=== PATIENT | male | born 1945 | race Caucasian/White ===

== ENCOUNTER → 2018-01-31 08:38 | Outpatient (CLI) | payer MEDICARE, OTHER, SELFPAY ==
--- NOTE | 2018-01-31 07:30 | LES_PTH ---
PATIENT: MIA MOONEY LOC: [facility] U#:[id number] AGE/SX: 79/M ROOM: RE01/31/[address]: Dr. Hank Miller MD : 1945 BED: DIS: SPEC #: [id number] RECD: 01/31/18 08:36 STATUS: BG GONZALO #: [id number] KANDY: 01/31/18 07:[address]: Hank Miller DEPT: SURGICAL PATHOLOGY RECD BY: Mitchell Gaudencio ENTERED: 01/31/18 12:34 SP TYPE: Lesion OTHR DR: Dr. Bobby Vasquez MD Tissues: Skin of forearm, NOS Procedures: Surgery Specimen Level IV HEADER OPERATION: Excision right forearm skin lesion PRE-OP DIAGNOSIS: Neoplasm of uncertain behavior of skin of forearm 048.5 TISSUE SUBMITTED: Skin lesion right forearm MICROSCOPIC DIAGNOSIS Skin lesion right forearm, biopsy: Consistent with benign verrucous keratosis. Negative for malignancy. SJ:monique 02/03/18 COMMENT Case has been reviewed in consultation with Dr. Nelson who concurs with the above diagnosis. IDC:AM MICROSCOPIC DESCRIPTION Slides are reviewed. GROSS DESCRIPTION Received in fixative is one container labeled with the patient's name and designated skin lesion right forearm. The specimen consists of a piece of lee-white skin ellipse measuring 1.4 x 0.5 cm and up to 0.2 cm in thickness. The specimen is inked and submitted entirely in one cassette. It will be sectioned at the time of embedding. / JOSEP:monique 01/31/18 TC:5 CPT: 48694
== END ==
PROVIDERS: Family Provider Internal Medicine; PCP Internal Medicine; Visit Provider Surgery
DX: D48.5 Neoplasm of uncertain behavior of skin (principal)
CPT/HCPCS: 88305

== ENCOUNTER 2020-01-10 12:07 | Emergency (ER) | payer MEDICARE, OTHER, SELFPAY ==
[2020-01-10 12:07] VITALS: BP 126/69; PULSE 80; RESP 16; TEMP 36.3; O2SAT 96; BMI 25.0
--- NOTE | 2020-01-10 12:37 | CT_ITS ---
STUDY: CT ABDOMEN AND PELVIS WITH CONTRAST REASON FOR EXAM: Male, 74 years old. Abdominal pain, history of diverticulosis RADIATION DOSAGE (If Supplied By Facility): CTDIvol = ( 14.51 ) mGy, DLP = ( 1045.29 ) mGycm TECHNIQUE: CT images were obtained from the dome of the diaphragm to the symphysis pubis without oral contrast. IV 100mL Isovue-370 was administered. Sagittal and coronal images were reconstructed. Individualized dose optimization techniques were used for this CT. COMPARISON: None. FINDINGS: Lung bases are clear. Inferior mediastinal structures are normal. There is no intestinal obstruction. There is colonic diverticulosis without diverticulitis. However, there are chronic extensive diverticular changes in the sigmoid which can mask the presence of mild focal diverticulitis. There is appendectomy. Solid organs are intact. There is a benign left renal cyst which does not require any further diagnostic imaging. Osseous structures are intact with a lucent lesion in the right L2 vertebral body posterolaterally, probably hemangioma. There is prior left inguinal hernia repair without recurrence. CT/Abdomen/Pelvis W IV Cont ONLY IMPRESSION: 1. No acute findings. 2. Extensive sigmoid diverticulosis. Electronically Signed: Michelle Baca, at 14:20 EDT Tel , Service support ,
--- NOTE | 2020-01-10 12:38 | ED.DCSUM_ITS ---
History of Present Illness Chief Complaint: Abd Pain Informant: Patient Narrative: 74-year-old male with past medical history of atrial fibrillation, stroke, hypertension presents with concern for abdominal pain. States it began this morning. States he has become distended. Is aching in nature. No relieving or worsening factors. Nausea without vomiting. Had one episode of diarrhea yesterday which resolved with Imodium. Denies any fever, chills, chest pain, cough, shortness of breath. Denies any urinary symptoms. Past Medical History - Allergies and Home Meds Allergies/Adverse Reactions: Allergies Sulfa (Sulfonamide Antibiotics) Allergy (Verified 01/10/20 12:10) Rash scallops Adverse Reaction (Verified 01/10/20 12:10) Vomiting Primary Care Physician: Bobby Vasquez MD [Primary Care Provider] - Past Medical History: - - Hypertension, stroke, atrial fibrillation Surgical History: - - Ablation Smoking Status: Never smoker Alcohol: None Drugs: None - Family History Maternal Family History: Reports: No pertinent history Paternal Family History: Reports: Cancer - Lung CA w/ history of tobacco use. Review of Systems General: Denies: Chills, Fever, Sweats Eyes: Denies: Visual changes - bilaterally, Diplopia ENT: Denies: Rhinorrhea, Sore throat Cardiovascular: Denies: Chest pain, Palpitations Respiratory: Denies: Dyspnea, Cough, Dyspnea on exertion Gastrointestinal: Reports: Abdominal pain, Nausea. Denies: Vomiting, Diarrhea, Melena, Hematochezia Genitourinary: Denies: Dysuria, Hematuria, Frequency Musculoskeletal: Denies: Back pain, Extremity Pain Skin: Denies: Rash, Wounds Neurological: Denies: Headache, Weakness, Numbness Physical Exam Vital Signs/Narrative: Vital Signs Temp Pulse Resp BP Pulse Ox 01/10/20 12:07 97.4 F L 80 16 126/69 H 96 Inital Vital Signs reviewed: Yes General: Well nourished, Well developed, No Acute Distress Head: Normocephalic, Atraumatic Eyes: Perrl, EOMI ENT: Moist mucous membranes, No rhinorrhea Neck: Supple, Nontender Cardiovascular: Regular rate, Regular rhythm, No murmurs Respiratory: No distress, CTA bilaterally, Chest nontender Abdomen: Soft, Nondistended, Normal bowel sounds, - - Slight tenderness to palpation in the left lower quadrant. No rebound or guarding. Reducible umbilical hernia. Back: Nontender, Normal Inspection Extremities: Nontender, No edema Skin: Normal color, No rash Neurological: Alert, Oriented x3, Cranial nerves II-XII grossly intact, Normal Strength, Normal Sensation Psychological: Normal affect, Normal Mood Diagnostic/Tx/Re-eval Clinical Impression(s) from Imaging Studies Abdomen/Pelvis CT 01/10/20 12:37 IMPRESSION: 1. No acute findings. 2. Extensive sigmoid diverticulosis. Electronically Signed: Michelle Baca, at 14:20 EDT Tel , Service support , Laboratory Data 01/10/20 01/10/20 01/10/20 13:00 13:00 13:36 WBC 9.5 RBC 5.38 Hgb 17.3 H Hct 51.9 MCV 96.5 H MCH 32.2 H MCHC 33.3 RDW Std Deviation 44.5 H RDW Coeff of Fernandez 12.6 Plt Count 126 L MPV 11.1 Immature Gran % (Auto) 0.500 Neut % (Auto) 82.8 H Lymph % (Auto) 10.8 L [place] % (Auto) 5.1 Eos % (Auto) 0.6 Baso % (Auto) 0.2 Absolute Neuts (auto) 7.9 H Absolute Lymphs (auto) 1.03 Nucleated RBC % 0 Sodium 140 Potassium 4.2 Chloride 108 H Carbon Dioxide 26.0 Anion Gap 6 BUN 15 Creatinine 0.98 Estim Creat Clear Calc 74.56 Est GFR (MDRD) Af Amer 95 Est GFR (MDRD) Non-Af 79 BUN/Creatinine Ratio 15.3 Glucose 128 H Calcium 8.8 Total Bilirubin 0.40 AST 12 L ALT 20 Alkaline Phosphatase 69 Total Protein 6.4 Albumin 3.8 Globulin 2.6 Albumin/Globulin Ratio 1.5 Lipase 60 L Urine Color Yellow Urine Clarity Clear Urine pH 5.0 Ur Specific [place] 1.020 Urine Protein Negative Urine Glucose (UA) Normal Urine Ketones 5 H Urine Occult Blood Negative Urine Nitrite Negative Urine Bilirubin Negative Urine Urobilinogen Normal Ur Leukocyte Esterase Negative Urine RBC 0 SEEN Urine WBC 0 SEEN Ur Squamous Epith Cells 0 SEEN Urine Bacteria RARE Urine Mucus 0 SEEN - Medical Decision Making Appears well nontoxic. Vital signs within normal limits. Benign abdominal exam. Reducible umbilical hernia. CT abdomen pelvis with IV contrast negative. Lab work within normal limits. Patient did not want any Zofran or pain control at this time. Will be discharged home with advice on continued p.o. hydration and possible Metamucil. Asked to return for new or worsening symptoms. Patient agreeable and discharged home in stable condition. Impression: 1. Abdominal pain 2. Nausea ED Disposition - Plan for ED Patient: Disposition: Home or Assisted Living Instructions: ED Unknown Causes of Abdominal Pain Male Referrals: Bobby Vasquez MD [Primary Care Provider] -
[2020-01-10 13:13] LABS: Absolute Lymphocyte Count 1.03 X10^3/uL (0.83-4.51); Absolute Neutrophil Count 7.9 X10^3/uL (2.0-7.7); Basophil# 0.02 X10^3/uL; Basophil% 0.2 % (0-1); Eosinophil# 0.06 X10^3/uL; Eosinophils% 0.6 % (0-5); Hematocrit 51.9 % (40-54); Hemoglobin 17.3 g/dL (13.0-16.5); Lymphocyte # 1.03 X10^3/ul (4.0); Lymphocyte % 10.8 % (19-41); Mean Corp Hgb Conc 33.3 g/dL (32-36); Mean Corpuscular Hgb 32.2 pg (27.0-32.0); Mean Corpuscular Volume 96.5 fL (80-94); Mean Platelet Vol. 11.1 fl (6.2-12.0); Monocyte# 0.49 X10^3/uL; Monocyte% 5.1 % (0-10); NRBC Flagged by Analyzer 0 % (0-5); Neutrophil # 7.88 X10^3/uL (2.7-7.7); Neutrophil % 82.8 % (47-70); Platelet Count 126 K/mm3 (150-450); RBC Distribution Width CV 12.6 % (11.6-14.6); RBC Distribution Width SD 44.5 fl (35.1-43.9); Red Blood Count 5.38 M/mm3 (4.6-6.2); White Blood Count 9.5 K/mm3 (4.4-11.0)
[2020-01-10 13:32] LABS: ALB/GLOB Ratio 1.5 RATIO (0.9-2.4); AST(SGOT) 12 U/L (15-37); Alanine Aminotransfer ALT/SGPT 20 U/L (16-61); Albumin, Serum 3.8 g/dL (3.2-5.0); Alkaline Phosphatase 69 U/L (45-117); Anion Gap 6 (5-15); BUN 15 mg/dL (7-18); BUN/Creat Ratio 15.3 RATIO (10-20); Calcium,Total 8.8 mg/dL (8.5-10.1); Chloride 108 mmol/L (98-107); Creatinine, Serum 0.98 mg/dL (0.70-1.30); EST Glomerular Filtration Rate 79 mL/min (>60); Est Glom Filt Rate - Afr Amer 95 mL/min (>60); Estimated Creatinine Clearance 74.56 ml/min; Globulin 2.6 g/dL (2.2-4.2); Glucose 128 mg/dL (74-106); Lipase 60 U/L (73-393); Potassium 4.2 mmol/L (3.5-5.1); Protein, Total 6.4 g/dL (6.4-8.2); Sodium Level 140 mmol/L (136-145)
[2020-01-10 13:39] LABS: Mucous, Urine 0 SEEN /hpf (<or=2+); Red Blood Cells-Urine 0 SEEN /hpf (0-5); Squamous Epithelial Cells - UA 0 SEEN /hpf (0-5); White Blood Cells 0 SEEN /hpf (0-5)
[2020-01-10 13:51] LABS: Color, Urine Yellow (Yellow); Glucose, Dipstick Normal (Normal); Ketone-Dipstick 5 mg/dl (Negative); Leukocyte Esterase-Dipstick Negative /ul (Negative); Nitrite-Dipstick Negative (Negative); Occult Blood-Urine Negative /ul (Negative); Protein-Dipstick Negative (Negative); Urine Bilirubin Dipstick Negative (Negative); Urine Clarity Clear (Clear); Urine Urobilinogen Normal (Normal)
[2020-01-10 14:08] LABS: Bacteria RARE /hpf (None Seen)
[2020-01-10 14:33] VITALS: BP 120/83; PULSE 60; RESP 16; O2SAT 96
[2020-01-10 14:43] VITALS: PULSE 62; RESP 14; O2SAT 98
== END 2020-01-10 14:44 | disposition home or self-care (01) ==
PROVIDERS: Emergency Provider Emergency Medicine; PCP Internal Medicine
DX: R10.9 Unspecified abdominal pain (principal); R11.0 Nausea
CPT/HCPCS: 74177; 80053; 81001; 83690; 85025; 99283; Q9967

== ENCOUNTER 2024-01-26 10:09 | Emergency (ER) | payer MEDICARE, OTHER, SELFPAY ==
[2024-01-26 10:11] VITALS: BP 134/82; PULSE 76; RESP 16; TEMP 36.6; O2SAT 95; BMI 27.8
--- NOTE | 2024-01-26 11:03 | CT_ITS ---
STUDY: CT BRAIN WITHOUT CONTRAST REASON FOR EXAM: Male, 78 years old. Confusion RADIATION DOSAGE (If Supplied By Facility): CTDIvol = ( 7 ) mGy, DLP = ( 451 ) mGycm TECHNIQUE: Transaxial CT imaging of the brain was performed without administration of intravenous contrast material. CT scan performed according to ALARA principles. Automated exposure control used during exam. COMPARISON: Prior study dated: 11/02/2015 FINDINGS: PARENCHYMA: Again noted is soft tissue density in the frontal epidural space adjacent to the left frontal mass. There are stable old infarcts with encephalomalacia in the right frontal lobe, right occipital lobe and right cerebellar hemisphere. There is no acute bleed or infarct. There are stable chronic ischemic and atrophic changes. VENTRICLES: There is no hydrocephalus. MASTOID AIR CELLS AND PARANASAL SINUSES: The visualized paranasal sinuses are clear. The mastoid air cells are clear. BONES: Again noted is lytic change in the frontal bone SOFT TISSUES: Again noted is a large scalp soft tissue mass in the frontal region. CT/Brain/Head without Contrast IMPRESSION: No acute intracranial abnormality. Stable chronic ischemic changes. Stable old infarcts in the right frontal lobe, right occipital lobe and right cerebellum. Redemonstration of a frontal scalp soft tissue mass with associated lytic changes in the frontal bone. The soft tissue mass again appears to extend into the epidural space. This remains highly suspicious for neoplasm. Electronically Signed: Rick Hwang MD at 12:44 EDT ,
--- NOTE | 2024-01-26 11:05 | EX.ED.DYSGE1 ---
HPI History of Present Illness Chief Complaint: Confusion Detail of Chief Complaint: Confusion Informant: patient Narrative Narrative: Patient presents to the emergency department with his with complaint of increased confusion over the last 4-5 nights. Patient is not been sleeping well over the last 4-5 nights. He does have history of a remote stroke and some cognitive impairment. Patient this morning after waking up around 9:00 seemed very disoriented and confused and brought in for evaluation. He is on Eliquis for history of A-fib. He has had no recent illness. Denies any falls or head injuries. Denies headache. PFSH [facility] Medical History (Updated 01/26/24 @ 13:[address] Aranza Triana, DO) Vitamin D deficiency Thrombocytopenia Multinodular goiter Erectile dysfunction GERD (gastroesophageal reflux disease) Diverticulosis of colon History of squamous cell carcinoma Polycythemia Pulmonary vein stenosis BPH (benign prostatic hyperplasia) History of CVA (cerebrovascular accident) GI bleeding CVA (cerebral vascular accident) Atrial fibrillation Home Medications ?Medication ?Instructions ?Recorded ?Last Taken ?Type tamsulosin 0.4 mg capsule 0.4 mg PO QHS 11/02/15 04/09/16 History finasteride 5 mg tablet 1 tab PO DAILY 02/07/16 04/10/16 History potassium chloride 20 mEq oral 20 meq PO DAILY 02/07/16 04/10/16 History packet simvastatin 20 mg tablet 20 mg PO DAILY 02/07/16 04/10/16 History apixaban 5 mg tablet 5 mg PO BID 01/10/20 Unknown History metoprolol succinate 25 mg PO 01/26/24 Unknown History tablet,extended release 24 hr Allergy/AdvReac Type Severity Reaction Status Date / Time Sulfa (Sulfonamide Allergy Rash Verified 01/26/24 10:14 Antibiotics) scallops AdvReac Vomiting Verified 01/26/24 10:14 Surgical History History of left inguinal hernia repair History of esophagogastroduodenoscopy (EGD) (~10/25/15) History of colonoscopy (~10/25/15) History of cardiac radiofrequency ablation History of laparoscopic appendectomy Social History (Updated 02/03/18 @ 13:[address] Hank Miller MD) Smoking Status: Never smoker ROS ROS ED Review of Systems ROS Unobtainable: other Constitutional Constitutional ED: Reports lethargy; Denies chills, fever(s), sweats or weight loss Eyes Eyes: Denies blurry vision, change in vision or diplopia ENT ENT ED: Denies rhinorrhea or sore throat Cardiovascular Cardiovascular: Denies chest pain, orthopnea or racing heartbeat Respiratory/Chest Respiratory/Chest: Denies cough, dyspnea, dyspnea on exertion, orthopnea or sputum Gastrointestinal Gastrointestinal: Denies abdominal pain, diarrhea, nausea or vomiting Genitourinary Genitourinary ED: Denies dysuria, hematuria or urinary frequency Musculoskeletal Musculoskeletal: Denies arthralgias, back pain, myalgias or neck pain Integumentary Denies abscess, Abrasions or rash Neurologic Neurologic: Reports other Details: Confusion ; Denies headache(s) or weakness Psychiatric Psychiatric: Denies anxiety, depression or suicidal thoughts Endocrine Endocrinology: Denies polydipsia, polyphagia or polyuria Hematologic/Lymphatic Hematologic/Lymphatic: Denies easy bleeding, easy bruising or lymphadenopathy Allergic/Immunologic Allergic/Immunologic ED: Denies mouth swelling, tongue swelling or urticaria EXAM Physical Exam Const Vital Signs: 01/26/24 10:11 01/26/24 11:14 01/26/24 11:46 Temperature 97.9 F 97.5 F L Temperature Source Oral Oral Pulse Rate 76 76 76 Respiratory Rate 16 15 15 Blood Pressure 134/82 H 135/77 H 129/88 H Blood Pressure Mean 99 96 101 Pulse Ox 95 98 97 Oxygen Delivery Method Room Air Room Air Room Air 01/26/24 12:07 01/26/24 13:17 01/26/24 13:18 Temperature 97.5 F L 97.2 F L Temperature Source Oral Oral Pulse Rate 71 82 71 Respiratory Rate 15 16 14 Blood Pressure 128/73 H 138/76 H Blood Pressure Mean 91 96 Pulse Ox 96 98 Oxygen Delivery Method Room Air Room Air Positive well nourished and well developed General Appearance ED: well developed and NAD HEENT Reports TM's clear and moist mucous membranes normocephalic and atraumatic; Negative for trauma or tenderness Tympanic Membrane ED: Yes TM's clear Eyes PERRL and EOMs intact bilaterally General Eye ED: Negative for pale conjunctiva or scleral icterus Neck no lymphadenopathy, supple and no JVD General: Negative for tenderness Chest Wall inspection of chest normal and palpation of chest normal Chest: Negative for tenderness Resp normal respiratory effort and clear to auscultation bilaterally Effort and Inspection: Negative for respiratory distress or pain with movement Auscultation: Negative for rhonchi, wheezes or diminished lung sounds Cardio regular rate, regular rhythm, S1 normal heart sound, S2 normal heart sound and no murmurs Peripheral Pulses: pulses 2+ throughout GI normal to inspection, nondistended, normoactive bowel sounds, soft to palpation, non-tender, non-distended and no masses Back/Spine no CVA tenderness and no thoracic nor lumbar tenderness Extremity normal to inspection General Extremety ED: Negative for edema General Extremity: Negative for edema Neuro oriented x3, CN's II-XII intact bilaterally, no sensory deficits noted and gait normal Neuro Narrative: Alert to person and place as well as year but not month. No focal weakness. No facial droop. Deep tendon reflexes plus 2 out of 4 bilaterally in the upper and lower extremities and symmetric. Sensorium / Orientation: awake, alert, oriented to person, oriented to place and oriented to time Motor Exam: strength 5/5 throughout and strength abnormal Psych mental status grossly normal Skin no rashes or lesions noted and no wounds MDM MDM MDM Narrative Medical decision making narrative: Patient presents with decreased sleep and confusion that is progressed. He had a episode this morning of increased confusion. was concerned about possibility for UTI or intracranial abnormality as he is on Eliquis. Patient had an EKG obtained arrival that showed a sinus rhythm with first-degree AV block with PACs and incomplete right bundle branch block. CBC with differential showing a 6.6 with hemoglobin 17 and platelet count of 133. Chemistries unremarkable. LFTs unremarkable. Urinalysis was normal. CT scan of the brain without contrast was obtained which showed a mass to the right frontal scalp invading into the skull which was there on prior CT from 2016. 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 At this point etiology of his increased confusion unclear although I suspect may be related to lack of sleep and insomnia. Initially wanted to talk to the geriatric social work professor about getting some home health care potentially but geriatric social work professor was tied up and they do not want a wait any longer they would like to be discharged to home and they will follow-up with that department. I did discuss case with Dr. Ndiaye who is covering for Dr. Vasquez and discussed case as well. We recommended that patient use melatonin or Benadryl as a sleep aid initially and then her to follow-up with the office within the next 3 to 5 days. Lab Data Attestation: I reviewed the patient's lab results. Labs: Laboratory Results - last 24 hr 01/26/24 01/26/24 10:20 11:35 WBC 6.6 RBC 5.47 Hgb 17.3 H Hct 52.5 MCV 96.0 H MCH 31.6 MCHC 33.0 RDW Std Deviation 44.4 H RDW Coeff of Fernandez 12.6 Plt Count 133 L MPV 11.5 Immature Gran % (Auto) 0.500 Neut % (Auto) 69.7 Lymph % (Auto) 20.1 [place] % (Auto) 7.9 Eos % (Auto) 1.5 Baso % (Auto) 0.3 Absolute Neuts (auto) 4.6 Absolute Lymphs (auto) 1.33 Nucleated RBC % 0 Sodium 140 Potassium 3.8 Chloride 105 Carbon Dioxide 30.0 Anion Gap 5 BUN 10 Creatinine 0.92 Estim Creat Clear Calc 74.46 Est GFR (MDRD) Af Amer 102 Est GFR (MDRD) Non-Af 84 BUN/Creatinine Ratio 10.9 Glucose 120 H Calcium 9.5 Total Bilirubin 0.70 AST 18 ALT 33 Alkaline Phosphatase 66 Troponin I High Sens 10 Total Protein 7.2 Albumin 4.0 Globulin 3.2 Albumin/Globulin Ratio 1.2 Urine Color Yellow Urine Clarity Clear Urine pH 6.5 Ur Specific [place] 1.015 Urine Protein 15 H Urine Glucose (UA) Normal Urine Ketones 5 H Urine Occult Blood Negative Urine Nitrite Negative Urine Bilirubin Negative Urine Urobilinogen Normal Ur Leukocyte Esterase 25 H Urine RBC 0-5 SEEN Urine WBC 0-5 SEEN Ur Squamous Epith Cells 0 SEEN Urine Bacteria RARE Urine Mucus 0 SEEN Radiography Diagnostic Testing: Clinical Impression(s) from Imaging Studies Brain CT 01/26/24 11:03 IMPRESSION: No acute intracranial abnormality. Stable chronic ischemic changes. Stable old infarcts in the right frontal lobe, right occipital lobe and right cerebellum. Redemonstration of a frontal scalp soft tissue mass with associated lytic changes in the frontal bone. The soft tissue mass again appears to extend into the epidural space. This remains highly suspicious for neoplasm. Electronically Signed: Rick Hwang MD at 12:44 EDT , EKG Initial EKG: Attestation: I personally reviewed and interpreted this EKG as follows: Comments: Sinus rhythm with rate of 64 bpm with first-degree AV block and PACs and incomplete right bundle branch block Discharge Plan Triage Chief Complaint: Confusion ED Provider: Aranza Triana Dx/Rx/DC Orders Clinical Impression: Insomnia, Acute confusion Instructions: ED Confusion, ED Insomnia Prescriptions: No Action tamsulosin 0.4 MG capsule 0.4 mg PO QHS Patient Comments: potassium chloride 20 MEQ packet 20 meq PO DAILY simvastatin 20 MG tablet 20 mg PO DAILY finasteride 5 MG tablet 1 tab PO DAILY Patient Comments: apixaban 5 mg tablet 5 mg PO BID Patient Comments: TAKE 1 TABLET BY MOUTH TWICE A DAY metoprolol succinate 25 mg tablet extended release 24 hr PO Primary Care Provider: Bobby Vasquez Referrals: Bobby Vasquez MD [Primary Care Provider] - 3-5 Days Activity Restrictions/Additional Instructions: You may use melatonin or Benadryl as a sleep aid Print Language: Romanian Disposition Disposition: Home, Self Care Discharge Date/Time: 01/26/24 13:54
[2024-01-26 11:14] VITALS: BP 135/77; PULSE 76; RESP 15; TEMP 36.4; O2SAT 98
[2024-01-26] MEDS: 0.9% Normal Saline (1000mL) 1,000 ML 150 ML IV (11:14)
[2024-01-26 11:35] LABS: Absolute Lymphocyte Count 1.33 X10^3/uL (0.83-4.51); Absolute Neutrophil Count 4.6 X10^3/uL (2.0-7.7); Basophil# 0.02 X10^3/uL; Basophil% 0.3 % (0-1); Eosinophils% 1.5 % (0-5); Hematocrit 52.5 % (40-54); Hemoglobin 17.3 g/dL (13.0-16.5); Lymphocyte # 1.33 X10^3/ul (0.83-4.51); Lymphocyte % 20.1 % (19-41); Mean Corpuscular Hgb 31.6 pg (27.0-32.0); Mean Platelet Vol. 11.5 fl (6.2-12.0); Monocyte# 0.52 X10^3/uL; Monocyte% 7.9 % (0-10); NRBC Flagged by Analyzer 0 % (0-5); Neutrophil # 4.62 X10^3/uL (2.7-7.7); Neutrophil % 69.7 % (47-70); Platelet Count 133 K/mm3 (150-450); RBC Distribution Width CV 12.6 % (11.6-14.6); RBC Distribution Width SD 44.4 fl (35.1-43.9); Red Blood Count 5.47 M/mm3 (4.6-6.2); White Blood Count 6.6 K/mm3 (4.4-11.0)
[2024-01-26 11:45] LABS: Mucous, Urine 0 SEEN /hpf (<or=2+); Squamous Epithelial Cells - UA 0 SEEN /hpf (0-5)
[2024-01-26 11:46] VITALS: BP 129/88; PULSE 76; RESP 15; O2SAT 97
[2024-01-26 11:51] LABS: Color, Urine Yellow (Yellow); Glucose, Dipstick Normal (Normal); Ketone-Dipstick 5 mg/dl (Negative); Leukocyte Esterase-Dipstick 25 /ul (Negative); Nitrite-Dipstick Negative (Negative); Occult Blood-Urine Negative /ul (Negative); Protein-Dipstick 15 mg/dl (Negative); Specific Gravity, Urine 1.015 (1.002-1.030); Urine Bilirubin Dipstick Negative (Negative); Urine Clarity Clear (Clear); Urine Urobilinogen Normal (Normal); Urine pH 6.5 (5.0 - 8.0)
[2024-01-26 11:55] LABS: ALB/GLOB Ratio 1.2 RATIO (0.9-2.4); AST(SGOT) 18 U/L (15-37); Alanine Aminotransfer ALT/SGPT 33 U/L (16-61); Alkaline Phosphatase 66 U/L (45-117); Anion Gap 5 (5-15); BUN 10 mg/dL (7-18); BUN/Creat Ratio 10.9 RATIO (10-20); Calcium,Total 9.5 mg/dL (8.5-10.1); Chloride 105 mmol/L (98-107); Creatinine, Serum 0.92 mg/dL (0.70-1.30); EST Glomerular Filtration Rate 84 mL/min (>60); Est Glom Filt Rate - Afr Amer 102 mL/min (>60); Estimated Creatinine Clearance 74.46 ml/min; Globulin 3.2 g/dL (2.2-4.2); Glucose 120 mg/dL (74-106); Potassium 3.8 mmol/L (3.5-5.1); Protein, Total 7.2 g/dL (6.4-8.2); Sodium Level 140 mmol/L (136-145); Troponin-I HS 10 pg/mL (3.0-78.0)
[2024-01-26 12:06] LABS: Bacteria RARE /hpf (None Seen); Red Blood Cells-Urine 0-5 SEEN /hpf (0-5); White Blood Cells 0-5 SEEN /hpf (0-5)
[2024-01-26 12:07] VITALS: BP 128/73; PULSE 71; RESP 15; TEMP 36.4; O2SAT 96
[2024-01-26 13:17] VITALS: BP 138/76; PULSE 82; RESP 16; TEMP 36.2; O2SAT 98
[2024-01-26 13:18] VITALS: PULSE 71; RESP 14
== END 2024-01-26 13:54 | disposition home or self-care (01) ==
PROVIDERS: Emergency Provider Emergency Medicine; PCP Internal Medicine; Visit Provider Emergency Medicine
DX: G47.00 Insomnia, unspecified (principal); I48.91 Unspecified atrial fibrillation; R41.0 Disorientation, unspecified; N40.0 Benign prostatic hyperplasia without lower urinary tract symptoms; Z79.01 Long term (current) use of anticoagulants; Z79.899 Other long term (current) drug therapy; Z86.73 Personal history of transient ischemic attack (TIA), and cerebral infarction without residual deficits
CPT/HCPCS: 70450; 80053; 81001; 84484; 85025; 93005; 96360; 96361; 99283; J7030; A4216

== ENCOUNTER 2024-08-20 19:41 | Emergency (ER) | payer MEDICARE, OTHER, SELFPAY ==
[2024-08-20 19:42] VITALS: BP 123/80; PULSE 87; RESP 20; TEMP 36.4; O2SAT 97; BMI 28.9
[2024-08-20 20:00] VITALS: O2SAT 98
--- NOTE | 2024-08-20 20:00 | CT_ITS ---
PROCEDURE: BRAIN/HEAD WITHOUT CONTRAST 08/20/2024 REASON FOR EXAM: FALL TECHNIQUE: Head CT without intravenous contrast. Coronal and Sagittal reconstruction series were provided. One or more dose reduction techniques were used (e.g., Automated exposure control, adjustment of the mA and/or kV according to patient size, use of iterative reconstruction technique. COMPARISON: None FINDINGS: No acute intracranial hemorrhage, mass, mass effect, midline shift or pathologic extra-axial fluid collection. Mild parenchymal atrophy with commensurate increase in CSF containing spaces. Right anterior frontal lobe and right temporal occipital lobe encephalomalacia, from prior infarct. Patchy white matter hypodensities, patient demographics favor chronic microvascular ischemic changes. Paranasal sinuses and mastoid air cells are clear. Moderate size right frontal calvarial defect. Large right frontal scalp soft tissue swelling with underlying hematoma. CT/Brain/Head without Contrast IMPRESSION: No acute intracranial abnormality. Chronic microvascular ischemia and involutional change. Large right frontal scalp soft tissue swelling and hematoma. Reading Location: [facility]
--- NOTE | 2024-08-20 20:00 | CT_ITS ---
PROCEDURE: SPINE CERVICAL WITHOUT CONTRAS 08/20/2024 REASON FOR EXAM: FALL TECHNIQUE: Cervical spine CT without contrast. Coronal and Sagittal reconstruction series were provided. One or more dose reduction techniques were used (e.g., Automated exposure control, adjustment of the mA and/or kV according to patient size, use of iterative reconstruction technique COMPARISON: None FINDINGS: Alignment: Mild reversal of the cervical lordosis. Atlantoaxial interval is maintained. Vertebrae: Vertebral body heights and disc spaces are maintained. No suspicious lytic or blastic lesion. No acute fracture or traumatic malalignment. Degenerative changes of the cervical spine, without high-grade canal stenosis or neural foraminal narrowing. Soft Tissues: Heterogeneously enlarged thyroid lobe with multiple thyroid glands. Other: Imaged lung apices are clear. CT/Spine Cervical without Contras IMPRESSION: No acute fracture or traumatic malalignment. Degenerative changes without high-grade canal stenosis or neural foraminal narr owing. Reading Location: [facility]
--- NOTE | 2024-08-20 20:00 | CT_ITS ---
PROCEDURE: CT CHEST, ABD, PEL W/CONTRAST 08/20/2024 REASON FOR EXAM: FALL, LEFT SIDE INJURY TECHNIQUE: Chest, abdomen and pelvis CT with intravenous contrast. Coronal and Sagittal reconstruction series were provided. One or more dose reduction techniques were used (e.g., Automated exposure control, adjustment of the mA and/or kV according to patient size, use of iterative reconstruction technique. PATIENT PREPARATION: Per protocol ORAL CONTRAST TYPE: None. AMOUNT: mL CONTRAST: Omnipaque 350 VOLUME: 100mL COMPARISON: None. FINDINGS: CT CHEST: Hardware: None Lymph nodes: No suspicious adenopathy. Heart and Vasculature: No cardiomegaly. No pericardial effusion. No coronary artery calcifications. Atherosclerotic calcifications of the thoracic aorta. Pulmonary arteries are unremarkable. Lungs and Airways: Central airways are patent without endobronchial lesions. Patchy opacities in the lung base, compatible with scarring and atelectasis. No suspicious pulmonary nodule. No pneumothorax. No pleural effusion. Bones: Nondisplaced lateral left 8th rib fracture. Degenerative changes of the thoracic spine. CT ABDOMEN/PELVIS: Liver: Normal size. No mass. Gallbladder: No cholelithiasis. No ductal dilation. Spleen: Normal size. Pancreas: Normal size without evidence of mass surrounding inflammation or ductal dilation. Adrenals: Unremarkable Kidneys: Normal renal sizes. No hydronephrosis. Bilateral simple cysts. Bladder: Unremarkable Reproductive Organs: Mild prostatomegaly. Bowel: Stomach is unremarkable. No bowel dilation or wall thickening. Colonic diverticulosis without diverticulitis. Moderate colonic stool. Appendix: The appendix is not identified. There is no inflammatory process identified in the right lower quadrant to suggest appendicitis. Lymph nodes: Unremarkable. Vasculature: Mild diffuse atherosclerotic calcifications are noted. Peritoneum / Retroperitoneum: No ascites. No pneumoperitoneum. Bones: Degenerative changes of the spine. CT/CT Chest, Abd, Pel w/Contrast IMPRESSION: Nondisplaced lateral left 8th rib fracture. Otherwise, no acute findings in th e chest, abdomen or pelvis. Colonic diverticulosis without diverticulitis. Reading Location: [facility]
--- NOTE | 2024-08-20 20:01 | ED.VIS.FALL ---
HPI HPI - Fall History of Present Illness Chief Complaint: Fall Informant: patient and spouse/S.O. [facility] Medical History (Updated 08/20/24 @ 22:[address] Ranulfo Fontaine DO) Vitamin D deficiency Thrombocytopenia Multinodular goiter Erectile dysfunction GERD (gastroesophageal reflux disease) Diverticulosis of colon History of squamous cell carcinoma Polycythemia Pulmonary vein stenosis BPH (benign prostatic hyperplasia) History of CVA (cerebrovascular accident) GI bleeding CVA (cerebral vascular accident) Atrial fibrillation Home Medications ?Medication ?Instructions ?Recorded ?Last Taken ?Type tamsulosin 0.4 mg capsule 0.4 mg PO QHS 11/02/15 04/09/16 History finasteride 5 mg tablet 1 tab PO DAILY 02/07/16 04/10/16 History potassium chloride 20 mEq oral 20 meq PO DAILY 02/07/16 04/10/16 History packet simvastatin 20 mg tablet 20 mg PO DAILY 02/07/16 04/10/16 History apixaban 5 mg tablet 5 mg PO BID 01/10/20 Unknown History metoprolol succinate 25 mg PO 01/26/24 Unknown History tablet,extended release 24 hr Allergy/AdvReac Type Severity Reaction Status Date / Time Sulfa (Sulfonamide Allergy Rash Verified 08/20/24 19:45 Antibiotics) scallops AdvReac Vomiting Verified 08/20/24 19:45 Surgical History History of left inguinal hernia repair History of esophagogastroduodenoscopy (EGD) (~10/25/15) History of colonoscopy (~10/25/15) History of cardiac radiofrequency ablation History of laparoscopic appendectomy Social History household members: spouse housing: house Smoking Status: Never smoker EXAM Physical Exam Const Vital Signs: 08/20/24 19:42 08/20/24 20:00 08/20/24 20:42 Temperature 97.5 F L Temperature Source Temporal Pulse Rate 87 76 Respiratory Rate 20 H 16 Respiratory Effort Normal Short of Breath Respiratory Depth Shallow Respiratory Pattern Normal Blood Pressure 123/80 H 121/76 H Blood Pressure Mean 94 91 Pulse Ox 97 98 99 Oxygen Delivery Method Room Air 08/20/24 21:00 08/20/24 21:57 Temperature 98.3 F Temperature Source Pulse Rate 79 83 Respiratory Rate 16 16 Respiratory Effort Respiratory Depth Respiratory Pattern Blood Pressure 113/70 130/64 H Blood Pressure Mean 84 86 Pulse Ox 98 99 Oxygen Delivery Method [facility] Lab Data Labs: Laboratory Results - last 24 hr 08/20/24 08/20/24 19:55 20:40 WBC 8.9 RBC 5.46 Hgb 17.1 H Hct 51.9 MCV 95.1 H MCH 31.3 MCHC 32.9 RDW Std Deviation 43.0 RDW Coeff of Fernandez 12.3 Plt Count 134 L MPV 10.6 Immature Gran % (Auto) 0.300 Neut % (Auto) 72.8 H Lymph % (Auto) 18.9 L [place] % (Auto) 6.2 Eos % (Auto) 1.5 Baso % (Auto) 0.3 Absolute Neuts (auto) 6.5 Absolute Lymphs (auto) 1.68 Nucleated RBC % 0 PT 13.9 INR 1.1 APTT 30.3 Sodium 138 Potassium 3.9 Chloride 99 Carbon Dioxide 28.3 Anion Gap 11 BUN 10 Creatinine 1.03 Estim Creat Clear Calc 71.79 Est GFR (MDRD) Non-Af 73 BUN/Creatinine Ratio 10.0 Glucose 151 H Calcium 9.4 Urine Color Yellow Urine Clarity Clear Urine pH 6.5 Ur Specific [place] 1.010 Urine Protein 15 H Urine Glucose (UA) Normal Urine Ketones Negative Urine Occult Blood Negative Urine Nitrite Negative Urine Bilirubin Negative Urine Urobilinogen Normal Ur Leukocyte Esterase Negative Urine RBC 0 SEEN Urine WBC 0-5 SEEN Ur Squamous Epith Cells 0 SEEN Urine Bacteria 0 SEEN Urine Mucus 0 SEEN Radiography Diagnostic Testing: Clinical Impression(s) from Imaging Studies Brain CT 08/20/24 20:00 IMPRESSION: No acute intracranial abnormality. Chronic microvascular ischemia and involutional change. Large right frontal scalp soft tissue swelling and hematoma. [facility] Cervical Spine CT 08/20/24 20:00 IMPRESSION: No acute fracture or traumatic malalignment. Degenerative changes without high-grade canal stenosis or neural foraminal narrowing. Reading Location: [facility] Chest/Abdomen/Pelvis CT 08/20/24 20:00 IMPRESSION: Nondisplaced lateral left 8th rib fracture. Otherwise, no acute findings in the chest, abdomen or pelvis. Colonic diverticulosis without diverticulitis. Reading Location: [facility] Discharge Plan Triage Chief Complaint: Fall ED Provider: Ranulfo Fontaine Dx/Rx/DC Orders Clinical Impression: Fall, Chronic anticoagulation, Fracture of rib Instructions: Rib Fracture (Broken Rib) Prescriptions: No Action tamsulosin 0.4 MG capsule 0.4 mg PO QHS Patient Comments: potassium chloride 20 MEQ packet 20 meq PO DAILY simvastatin 20 MG tablet 20 mg PO DAILY finasteride 5 MG tablet 1 tab PO DAILY Patient Comments: apixaban 5 mg tablet 5 mg PO BID Patient Comments: TAKE 1 TABLET BY MOUTH TWICE A DAY metoprolol succinate 25 mg tablet extended release 24 hr PO Primary Care Provider: Bobby Vasquez Referrals: Bobby Vasquez MD [Primary Care Provider] - 1 Week Activity Restrictions/Additional Instructions: Nondisplaced left eighth rib fracture on CT. No other trauma seen. Head and neck were negative. No organ injury. Use Tylenol or acetaminophen up to 1 g every 6 hours as needed for pain. Use the incentive spirometer every 2 hours while awake. Follow-up with your doctor. Print Language: Armenian Disposition Disposition: Home, Self Care Discharge Date/Time: 08/20/24 22:01
[2024-08-20 20:12] LABS: Absolute Lymphocyte Count 1.68 X10^3/uL (0.83-4.51); Absolute Neutrophil Count 6.5 X10^3/uL (2.0-7.7); Basophil# 0.03 X10^3/uL; Basophil% 0.3 % (0-1); Eosinophil# 0.13 X10^3/uL; Eosinophils% 1.5 % (0-5); Hematocrit 51.9 % (40-54); Hemoglobin 17.1 g/dL (13.0-16.5); Lymphocyte # 1.68 X10^3/ul (0.83-4.51); Lymphocyte % 18.9 % (19-41); Mean Corp Hgb Conc 32.9 g/dL (32-36); Mean Corpuscular Hgb 31.3 pg (27.0-32.0); Mean Corpuscular Volume 95.1 fL (80-94); Mean Platelet Vol. 10.6 fl (6.2-12.0); Monocyte# 0.55 X10^3/uL; Monocyte% 6.2 % (0-10); NRBC Flagged by Analyzer 0 % (0-5); Neutrophil # 6.48 X10^3/uL (2.7-7.7); Neutrophil % 72.8 % (47-70); Platelet Count 134 K/mm3 (150-450); RBC Distribution Width CV 12.3 % (11.6-14.6); Red Blood Count 5.46 M/mm3 (4.6-6.2); White Blood Count 8.9 K/mm3 (4.4-11.0)
--- NOTE | 2024-08-20 20:14 | ED.VIS.FALL ---
HPI HPI - Fall History of Present Illness Chief Complaint: Fall Informant: patient and spouse/S.O. Narrative Narrative: Patient presents with spouse by private car mechanical fall on Kristi. This happened at 8 AM this morning. Patient went out to take in the trash can per spouse 3 steps to go down the garage they do have a handle to help him down as he has issues with stability from stroke history. Reported missed gripping the handle falling down onto his left side. [place] ground. He denies head injury denies headache neck pain. Pain to his left ribs and back. Worsen throughout the day. He took Aleve earlier today. No pain in hip joints or arms. [facility] Medical History (Updated 08/20/24 @ 22:[address] Ranulfo Fontaine DO) Vitamin D deficiency Thrombocytopenia Multinodular goiter Erectile dysfunction GERD (gastroesophageal reflux disease) Diverticulosis of colon History of squamous cell carcinoma Polycythemia Pulmonary vein stenosis BPH (benign prostatic hyperplasia) History of CVA (cerebrovascular accident) GI bleeding CVA (cerebral vascular accident) Atrial fibrillation Home Medications ?Medication ?Instructions ?Recorded ?Last Taken ?Type tamsulosin 0.4 mg capsule 0.4 mg PO QHS 11/02/15 04/09/16 History finasteride 5 mg tablet 1 tab PO DAILY 02/07/16 04/10/16 History potassium chloride 20 mEq oral 20 meq PO DAILY 02/07/16 04/10/16 History packet simvastatin 20 mg tablet 20 mg PO DAILY 02/07/16 04/10/16 History apixaban 5 mg tablet 5 mg PO BID 01/10/20 Unknown History metoprolol succinate 25 mg PO 01/26/24 Unknown History tablet,extended release 24 hr Allergy/AdvReac Type Severity Reaction Status Date / Time Sulfa (Sulfonamide Allergy Rash Verified 08/20/24 19:45 Antibiotics) scallops AdvReac Vomiting Verified 08/20/24 19:45 Surgical History History of left inguinal hernia repair History of esophagogastroduodenoscopy (EGD) (~10/25/15) History of colonoscopy (~10/25/15) History of cardiac radiofrequency ablation History of laparoscopic appendectomy Social History household members: spouse housing: house Smoking Status: Never smoker ROS ROS ED Constitutional Constitutional ED: Denies chills, fever(s) or sweats ENT ENT ED: Denies sore throat Cardiovascular Cardiovascular: Denies chest pain, leg edema, palpitations or racing heartbeat Respiratory/Chest Respiratory/Chest: Denies cough, dyspnea or dyspnea on exertion Gastrointestinal Gastrointestinal: Denies abdominal pain, diarrhea, nausea or vomiting Genitourinary Genitourinary ED: Denies dysuria, hematuria or urinary frequency Musculoskeletal Musculoskeletal: Reports back pain and other Details: Left rib pain ; Denies extremity pain or neck pain Integumentary Denies rash or wounds Neurologic Neurologic: Denies headache(s), paresthesias or weakness EXAM Physical Exam Const Vital Signs: 08/20/24 19:42 08/20/24 20:00 08/20/24 20:42 Temperature 97.5 F L Temperature Source Temporal Pulse Rate 87 76 Respiratory Rate 20 H 16 Respiratory Effort Normal Short of Breath Respiratory Depth Shallow Respiratory Pattern Normal Blood Pressure 123/80 H 121/76 H Blood Pressure Mean 94 91 Pulse Ox 97 98 99 Oxygen Delivery Method Room Air 08/20/24 21:00 08/20/24 21:57 Temperature 98.3 F Temperature Source Pulse Rate 79 83 Respiratory Rate 16 16 Respiratory Effort Respiratory Depth Respiratory Pattern Blood Pressure 113/70 130/64 H Blood Pressure Mean 84 86 Pulse Ox 98 99 Oxygen Delivery Method Positive well nourished and well developed Constitutional Narrative: GCS 15. Speech is slower however normal for patient. General Appearance ED: well developed and NAD HEENT Reports moist mucous membranes normocephalic and atraumatic Eyes General Eye ED: Yes normal appearance of both eyes Neck full ROM Chest Wall Chest Narrative: Tender palpation left lower lateral ribs no crepitus. No ecchymosis. Chest: Negative for tenderness Resp normal respiratory effort and normal air movement Effort and Inspection: symmetric chest movement; Negative for respiratory distress Cardio regular rate, regular rhythm and no murmurs Peripheral Pulses: pulses 2+ throughout GI normal to inspection, nondistended, normoactive bowel sounds and non-tender Palpation: Negative for guarding or rebound tenderness present Back/Spine Back/Spine Narrative: Left flank tenderness no ecchymosis. Extremity normal to inspection Extremity Narrative: Negative logroll of the lower extremities. Full range of motion arms and legs. Left forearm small abrasion mid dorsal forearm. No active bleeding. General Extremety ED: Negative for edema or tenderness General Extremity: Negative for edema Neuro oriented x3, CN's II-XII intact bilaterally and no sensory deficits noted Sensorium / Orientation: awake and alert Skin no rashes or lesions noted and no wounds MDM MDM MDM Narrative Medical decision making narrative: Interventions / MDM: Differential diagnosis: Rib fracture Diagnosis considered but do not suspect: Intracranial hemorrhage, organ injury however CT negative. My EKG interpretation: N/A Imaging independently reviewed and interpreted by myself: CT brain/cervical spine: No acute process. Reported hematoma frontal scalp, however patient has had chronic skull changes per spouse for years. CT chest abdomen pelvis: Isolated nondisplaced left eighth rib fracture. No pneumothorax. No organ injury noted. External documents reviewed: N/A Test considered but not ordered:N/A ED course: Mechanical fall on Eliquis. Pain left lower ribs and left flank. IV was stopped by nursing. Will send labs. Trauma scans head and neck. Chest abdomen pelvis CT scan with IV contrast. He declines any pain medicines at this time. Patient trauma workup positive for nondisplaced left eighth rib fracture. Discussed and showed images to patient and spouse. He did agree with Tylenol prior to discharge. He will use up to 1 g every 6 hours. Discussed avoiding NSAIDs as he is on Eliquis. Provided incentive spirometer use while awake. Discharged with outpatient follow-up. 2230: Of note, time of signing chart, noted discharge papers reported multiple leg and rib fractures. Left message clarifying this to patient and spouse. Discussed only isolated left rib fracture. Re-evaluation: stable Disposition discussed with patient/family/significant other: Patient and spouse Case discussed with consulting clinician: N/A This note was generated with Pounce dictation software. It may contain incorrect words, spelling, and punctuation that were not noted in checking the note before signing. Lab Data Attestation: I reviewed the patient's lab results. Labs: Laboratory Results - last 24 hr 08/20/24 08/20/24 19:55 20:40 WBC 8.9 RBC 5.46 Hgb 17.1 H Hct 51.9 MCV 95.1 H MCH 31.3 MCHC 32.9 RDW Std Deviation 43.0 RDW Coeff of Fernandez 12.3 Plt Count 134 L MPV 10.6 Immature Gran % (Auto) 0.300 Neut % (Auto) 72.8 H Lymph % (Auto) 18.9 L [place] % (Auto) 6.2 Eos % (Auto) 1.5 Baso % (Auto) 0.3 Absolute Neuts (auto) 6.5 Absolute Lymphs (auto) 1.68 Nucleated RBC % 0 PT 13.9 INR 1.1 APTT 30.3 Sodium 138 Potassium 3.9 Chloride 99 Carbon Dioxide 28.3 Anion Gap 11 BUN 10 Creatinine 1.03 Estim Creat Clear Calc 71.79 Est GFR (MDRD) Non-Af 73 BUN/Creatinine Ratio 10.0 Glucose 151 H Calcium 9.4 Urine Color Yellow Urine Clarity Clear Urine pH 6.5 Ur Specific [place] 1.010 Urine Protein 15 H Urine Glucose (UA) Normal Urine Ketones Negative Urine Occult Blood Negative Urine Nitrite Negative Urine Bilirubin Negative Urine Urobilinogen Normal Ur Leukocyte Esterase Negative Urine RBC 0 SEEN Urine WBC 0-5 SEEN Ur Squamous Epith Cells 0 SEEN Urine Bacteria 0 SEEN Urine Mucus 0 SEEN Radiography Diagnostic Testing: Clinical Impression(s) from Imaging Studies Brain CT 08/20/24 20:00 IMPRESSION: No acute intracranial abnormality. Chronic microvascular ischemia and involutional change. Large right frontal scalp soft tissue swelling and hematoma. Reading Location: [facility] Cervical Spine CT 08/20/24 20:00 IMPRESSION: No acute fracture or traumatic malalignment. Degenerative changes without high-grade canal stenosis or neural foraminal narrowing. Reading Location: [facility] Chest/Abdomen/Pelvis CT 08/20/24 20:00 IMPRESSION: Nondisplaced lateral left 8th rib fracture. Otherwise, no acute findings in the chest, abdomen or pelvis. Colonic diverticulosis without diverticulitis. Reading Location: [facility] Discharge Plan Triage Chief Complaint: Fall ED Provider: Ranulfo Fontaine Dx/Rx/DC Orders Clinical Impression: Fall, Chronic anticoagulation, Fracture of rib Instructions: Rib Fracture (Broken Rib) Prescriptions: No Action tamsulosin 0.4 MG capsule 0.4 mg PO QHS Patient Comments: potassium chloride 20 MEQ packet 20 meq PO DAILY simvastatin 20 MG tablet 20 mg PO DAILY finasteride 5 MG tablet 1 tab PO DAILY Patient Comments: apixaban 5 mg tablet 5 mg PO BID Patient Comments: TAKE 1 TABLET BY MOUTH TWICE A DAY metoprolol succinate 25 mg tablet extended release 24 hr PO Primary Care Provider: Bobby Vasquez Referrals: Bobby Vasquez MD [Primary Care Provider] - 1 Week Activity Restrictions/Additional Instructions: Nondisplaced left eighth rib fracture on CT. No other trauma seen. Head and neck were negative. No organ injury. Use Tylenol or acetaminophen up to 1 g every 6 hours as needed for pain. Use the incentive spirometer every 2 hours while awake. Follow-up with your doctor. Print Language: Georgian Disposition Disposition: Home, Self Care Discharge Date/Time: 08/20/24 22:01
[2024-08-20 20:30] LABS: Anion Gap 11 (5-15); BUN 10 mg/dL (4-19); Calcium,Total 9.4 mg/dL (7.6-11.0); Carbon Dioxide 28.3 mmol/L (21.0-32.0); Chloride 99 mmol/L (98-108); Creatinine, Serum 1.03 mg/dL (0.70-1.20); EST Glomerular Filtration Rate 73 (>60); Estimated Creatinine Clearance 71.79 ml/min (50-250); Glucose 151 mg/dL (70-99); International Normalized Ratio 1.1; Potassium 3.9 mmol/L (3.3-5.1); Prothrombin Time (Protime)PT. 13.9 SECONDS (11.7-14.9); Sodium Level 138 mmol/L (133-145)
[2024-08-20 20:31] LABS: Partial Thromboplast Time 30.3 Seconds (24.1-36.2)
[2024-08-20 20:42] VITALS: BP 121/76; PULSE 76; RESP 16; O2SAT 99
[2024-08-20 20:48] LABS: Bacteria 0 SEEN /hpf (None Seen); Mucous, Urine 0 SEEN /hpf (<or=2+); Red Blood Cells-Urine 0 SEEN /hpf (0-5); Squamous Epithelial Cells - UA 0 SEEN /hpf (0-5)
[2024-08-20 20:52] LABS: Color, Urine Yellow (Yellow); Glucose, Dipstick Normal (Normal); Ketone-Dipstick Negative (Negative); Leukocyte Esterase-Dipstick Negative /ul (Negative); Nitrite-Dipstick Negative (Negative); Occult Blood-Urine Negative /ul (Negative); Protein-Dipstick 15 mg/dl (Negative); Urine Bilirubin Dipstick Negative (Negative); Urine Clarity Clear (Clear); Urine Urobilinogen Normal (Normal); Urine pH 6.5 (5.0 - 8.0)
[2024-08-20 21:00] VITALS: BP 113/70; PULSE 79; RESP 16; O2SAT 98
[2024-08-20 21:14] LABS: White Blood Cells 0-5 SEEN /hpf (0-5)
[2024-08-20] MEDS: Acetaminophen 500 MG Tablet 1000 MG PO (21:56)
[2024-08-20 21:57] VITALS: BP 130/64; PULSE 83; RESP 16; TEMP 36.8; O2SAT 99
== END 2024-08-20 22:01 | disposition home or self-care (01) ==
PROVIDERS: Emergency Provider Emergency Medicine; PCP Internal Medicine; Visit Provider Emergency Medicine
DX: S22.32XA Fracture of one rib, left side, initial encounter for closed fracture (principal); I48.91 Unspecified atrial fibrillation; S50.812A Abrasion of left forearm, initial encounter; M54.9 Dorsalgia, unspecified; E55.9 Vitamin D deficiency, unspecified; W10.9XXA Fall (on) (from) unspecified stairs and steps, initial encounter; Y93.E9 Activity, other interior property and clothing maintenance; Y92.015 Private garage of single-family (private) house as the place of occurrence of the external cause; Z79.01 Long term (current) use of anticoagulants; Z79.899 Other long term (current) drug therapy; Z86.73 Personal history of transient ischemic attack (TIA), and cerebral infarction without residual deficits
CPT/HCPCS: 70450; 71260; 72125; 74177; 80048; 81001; 85025; 85610; 85730; 99283; Q9967